=== PATIENT | male | born 1965 | race Caucasian/White ===

== ENCOUNTER 2024-03-01 22:59 | Inpatient (IN) ==
--- NOTE | 2024-03-01 23:40 | Emergency Department Note ---
Impression & Plan Uvulitis ADMIT ED Provider Note HPI: History obtained from patient. The patient is a 58-year-old gentleman who presents the emergency department with chief complaint of throat discomfort. Patient states that he has had an abnormal sensation with some discomfort to the left side of his throat since Monday. Patient states that he was seen at a local urgent care on Monday and had negative strep testing performed however he was placed on Augmentin. Patient states that his symptoms have only worsened over the past several days and now he is having some trouble swallowing solid foods and liquids secondary to the discomfort. On arrival here to the ED the patient is hemodynamically stable, he is tolerating his own secretions without issue, he is saturating well on room air without stridor on my initial assessment. ROS: - Per HPI Differential Diagnosis: Acute uvulitis, peritonsillar abscess, retropharyngeal abscess, epiglottitis, viral pharyngitis, amongst other potential pathologies. *Outpatient medications and allergy history reviewed. PE: General: Alert HEENT: Normocephalic, trachea midline, there is moderate swelling of the uvula and the left side of the posterior pharyngeal soft tissues without any overlying exudate, no petechiae or ulcers noted, airway is otherwise patent Eyes: Extraocular eye movement is intact, no scleral erythema Pulmonary: Clear to auscultation bilaterally, no wheezing Cardio: Regular rate and rhythm GI: Abdomen is soft to palpation : No suprapubic tenderness MSK: No evidence of trauma or malformation of the extremities, no edema Skin: No evidence of rash Neuro: Alert, no focal deficits Psychiatric: Cooperative 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 On exam the patient does have some soft tissue edema of the uvula as well as the superior aspect of the soft tissues of the left side of the posterior pharynx. Patient's airway is otherwise patent, he does not display any respiratory distress or stridor. He is tolerating his own secretions without issue. Lab work shows no leukocytosis, hemoglobin is stable at 13.3, platelet count is normal, CMP does not show any critical findings. CT imaging of the soft tissues of the neck was performed with IV contrast that does show some significant soft tissue swelling/edema down to the level of the vocal cords. There is suggestion of severe airway narrowing, etiology at this point is unclear per interpreting radiologist but could be infectious, inflammatory, or malignant in nature. Patient was given IV ceftriaxone and IV Solu-Medrol here in the ED. I did discuss the results of the CT imaging with the interpreting radiologist, Dr. Ordonez over the phone. On my reassessment the patient appears well and remains saturating well on room air without any stridor or respiratory distress. I discussed the patient's presentation, physical exam findings, and CT imaging findings with the on-call general scrap worker, Dr. Julian at approximately 3:[address] Julian recommends admission and he will plan to perform nasopharyngeal scope the patient early in the morning. Case was then discussed with the on-call admitting hospitalist, Dr. Moncada, patient was placed for admission in stable condition. Patient and his at the bedside are in agreement to this plan. Consultants/Discussions held with other healthcare providers: -Otolaryngology, Dr. Julian -Radiology, Dr. Ordonez -Hospitalist, Dr. Moncada Disposition discussion held by myself with: -Patient and patient's at the bedside Diagnosis: 1. Pharyngeal edema, acute, nonspecific 2. Uvulitis, acute 3. Sore throat, acute Disposition: Admission Christiano Acosta DO Emergency Medicine Past Med/Surg History Problem List (Updated 03/02/24 @ 02:49 by Christiano Acosta DO) Uvulitis (Acute) Social History Smoking Status: Never smoker Preferred Language: Slovak Feels Safe at Home: Yes Home Meds Home Medications Medication Instructions Recorded Confirmed amoxicillin 875 mg-potassium 1 tab PO BID 03/02/24 03/02/24 clavulanate 125 mg tablet losartan 100 mg tablet 50 mg PO DAILY 03/02/24 03/02/24 rosuvastatin 10 mg tablet 10 mg PO DAILY 03/02/24 03/02/24 Previous Rx's Medication Instructions Recorded prednisone 20 mg tablet 20 mg PO BID #15 tabs 03/02/24 Results & Data (ED) Vital Signs Vital Signs - 24 hr 03/01/24 23:03 03/01/24 23:56 03/01/24 23:56 Temperature 37.5 C Temperature Source Oral Pulse Rate 73 Pulse Rate [Apical] 64 Respiratory Rate 18 16 Respiratory Effort / Characteristics Non-Labored Respiratory Depth Normal Blood Pressure 156/93 H Blood Pressure [Left Arm] 145/79 H Blood Pressure Mean 114 Blood Pressure Mean [Left Arm] 101 Blood Pressure Position [Left Arm] Sitting Pulse Oximetry 95 93 93 Oxygen Delivery Method Room Air Room Air Room Air Sepsis Recent Fever Within 48 Hours Yes Sepsis New/Unexplained Change in Mental Status No Sepsis Action Taken by Nursing No Action Required 03/02/24 00:11 03/02/24 01:00 03/02/24 02:00 Temperature Temperature Source Pulse Rate 63 Pulse Rate [Apical] 63 65 Respiratory Rate 16 16 Respiratory Effort / Characteristics Respiratory Depth Blood Pressure Blood Pressure [Left Arm] 145/83 H 146/83 H Blood Pressure Mean Blood Pressure Mean [Left Arm] 103 104 Blood Pressure Position [Left Arm] Pulse Oximetry 95 94 Oxygen Delivery Method Room Air Room Air Sepsis Recent Fever Within 48 Hours Sepsis New/Unexplained Change in Mental Status Sepsis Action Taken by Nursing 03/02/24 03:00 Temperature Temperature Source Pulse Rate Pulse Rate [Apical] 64 Respiratory Rate 16 Respiratory Effort / Characteristics Respiratory Depth Blood Pressure Blood Pressure [Left Arm] 149/83 H Blood Pressure Mean Blood Pressure Mean [Left Arm] 105 Blood Pressure Position [Left Arm] Pulse Oximetry 93 Oxygen Delivery Method Room Air Sepsis Recent Fever Within 48 Hours Sepsis New/Unexplained Change in Mental Status Sepsis Action Taken by Nursing Laboratory Data 03/01/24 23:29 03/01/24 23:29 Lab Results 03/01/24 Range/Units 23:29 WBC 10.33 (4.8-10.8) K/ul RBC 4.50 L (4.70-6.10) M/uL Hgb 13.3 L (14.0-18.0) g/dl Hct 39.4 L (42.0-52.0) % MCV 87.6 (80.0-100.0) fL MCH 29.6 (25.0-34.0) pg MCHC 33.8 (32.0-36.0) g/dL RDW Std Deviation 43.1 (36.4-46.3) fL RDW Coeff of Mike 13.5 (11.5-14.5) % Plt Count 256 (130-400) K/uL MPV 9.6 (9.4-12.4) fL Immature Gran % (Auto) 0.4 % Neut % (Auto) 72.9 % Lymph % (Auto) 15.4 % [place] % (Auto) 10.1 % Eos % (Auto) 0.8 % Baso % (Auto) 0.4 % Neut # (Auto) 7.54 H (1.40-6.50) K/uL Lymph # (Auto) 1.59 (1.20-3.40) K/uL [place] # (Auto) 1.04 H (0.11-0.59) K/uL Eos # (Auto) 0.08 (0.00-0.50) K/uL Baso # (Auto) 0.04 (0.00-0.20) K/uL Immature Gran # (Auto) 0.04 (0.01-0.20) K/uL PT 10.5 (9.0-12.0) Seconds INR 1.0 (0.9-1.1) Sodium 138 (136-145) mmol/L Potassium 3.8 (3.5-5.1) mmol/L Chloride 104 (98-107) mmol/L Carbon Dioxide 24 (21-32) mmol/L Anion Gap 10 (3-11) BUN 17 (6-23) mg/dl Creatinine 1.20 (0.6-1.4) mg/dl Est Cr Clr Drug Dosing 85.3 ml/min Est GFR ( Amer) 76.3 ml/min Est GFR (Non-Af Amer) 65.8 ml/min BUN/Creatinine Ratio 14.2 (10-20) Glucose 123 H (70-99(Fasting)) mg/dl Calcium 10.2 (8.6-10.3) mg/dl Total Bilirubin 0.8 (0.2-1.0) mg/dl AST 19 (13-39) U/L ALT 21 (7-52) U/L Alkaline Phosphatase 50 (34-104) U/L Total Protein 8.1 (6.0-8.3) gm/dl Albumin 4.7 (3.4-5.0) gm/dl Globulin 3.4 (2.5-4.0) gm/dl Albumin/Globulin Ratio 1.4 (0.9-2) Administered Medications Discontinued Medications Sodium Chloride (Nss) 500 mls @ 999 mls/hr IV .Q31M STA Stop: 03/01/24 23:48 Last Infusion: 03/02/24 00:19 Dose: Infused Documented By: Admin: 03/01/24 23:48 Dose: 999 mls/hr Documented By: ANA Ceftriaxone Sodium (Rocephin) 1,000 mg in 50 mls @ 100 mls/hr IV NOW STA Stop: 03/01/24 23:48 Last Infusion: 03/02/24 00:19 Dose: Infused Documented By: Admin: 03/01/24 23:48 Dose: 100 mls/hr Documented By: ANA Ioversol (Optiray 320 100ml) 94 ml IV ONCE ONE Stop: 03/02/24 00:49 Last Admin: 03/02/24 00:48 Dose: 94 ml Documented By: ARIAS Methylprednisolone (Methylprednisolone 125 Mg/2 Ml Vial) 125 mg IV NOW STA Stop: 03/01/24 23:19 Last Admin: 03/01/24 23:49 Dose: 125 mg Documented By: ANA Imaging Data Radiologist's Impression: Soft Tissue Neck CT 03/01/24 23:20 CR Exam(s): CT NECK With Contrast IV Amt: 94 cc's optiray 320 EXAM: CT Neck With Intravenous Contrast CLINICAL HISTORY: Reason for exam: uvula swelling, L sided post. pharyngeal edema. TECHNIQUE: Axial computed tomography images of the neck with intravenous contrast. CTDI is 19.3 mGy and DLP is 604.6 mGy-cm. Automated exposure control was utilized for the study. A dose lowering technique was utilized adhering to the principles of ALARA. Moderate dental metal artifact. CONTRAST: Patient received 94 cc optiray 320 IV. COMPARISON: No relevant prior studies available. FINDINGS: Oropharynx: Uvular swelling, and moderate asymmetric mucosal swelling in the oropharynx, greater on the left. Nonspecific, could reflect left tonsillar hypertrophy, and a 12 mm left peritonsillar abscess. Limited evaluation due to dental metal artifact. Neoplasm not excluded. Severe narrowing of the oropharyngeal airway to 1 mm in the supine position. Hypopharynx/larynx: Mild mucosal thickening in the left uvula to the level of the vocal cords. Normal epiglottis. Trachea: Unremarkable. Retropharyngeal space: Unremarkable. Submandibular/parotid glands: Unremarkable. Glands are normal in size. Thyroid: Unremarkable. No enlarged or calcified nodules. Bones/joints: No acute fracture. Soft tissues: Unremarkable. Vasculature: No acute findings. Lymph nodes: Nonspecific left level 2 cervical lymph nodes, may be reactive, cannot rule out metastatic disease. Lung apices: Unremarkable as visualized. IMPRESSION: 1. Moderate left oropharyngeal mucosal thickening, results in severe airway narrowing. This may be inflammatory/infectious, neoplasm not excluded. 2. Mucosal edema extends in the left hypopharynx/larynx to the level of the vocal cords. 3. Nonspecific left level 2 cervical adenopathy, may be reactive, metastatic disease not excluded. Communications: Call Doctor Above results Electronically signed by: Delfina Ordonez M.D. 03/02/24 03:14 AM Discharge Plan Visit Data Chief Complaint: Sore Throat Stated Complaint: SORE AND SWOLLEN THROAT ED Provider: Christiano Acosta Discharge Problem: Uvulitis Patient Disposition: Home - Self-Care Condition: Good Discharge Instructions Krames/Other Patient Handouts: ED Uvulitis, ED [facility] Sore Throat Activity Restrictions/Additional Instructions: Please follow-up with otolaryngology in the office as discussed, please call Monday to schedule this appointment. Please follow-up with your primary care doctor in 2 to 3 days for reassessment and further management. Please take your prednisone as prescribed. Please continue to take your Augmentin as prescribed. Please return to the emergency room if you have any new or acutely worsening symptoms. Forms Stand Alone Forms: My [facility], Important Visit Information Prescriptions Prescriptions: New prednisone 20 mg tablet 20 mg PO BID Qty: 15 0RF Rx Instructions: Please take one tablet by mouth twice daily on days 1 through 5. Please take one tablet by mouth once daily on days 6 through 10. No Action losartan 100 mg tablet 50 mg PO DAILY amoxicillin-pot clavulanate 875-125 mg tablet 1 tab PO BID rosuvastatin 10 mg tablet 10 mg PO DAILY Referrals Referrals: Christiano Alvarez MD [Physician] - PCP,NO [Physician] -
[2024-03-01] MEDS: SODIUM CHLORIDE 0.9% 500 ML IV STA (23:48)
[2024-03-01] MEDS: cefTRIAXone SODIUM 1,000 MG/50 ML BAG IV STA (23:48)
[2024-03-01] MEDS: methylPREDNISolone 125 MG/2 ML VIAL IV STA (23:49)
[2024-03-01 23:58] LABS: Basophils # (auto) 0.04 K/uL (0.00-0.20); Basophils % (auto) 0.4 %; Eosinophils # (auto) 0.08 K/uL (0.00-0.50); Eosinophils % (auto) 0.8 %; Hematocrit (blood only) 39.4 % (42.0-52.0); Hemoglobin 13.3 g/dl (14.0-18.0); Immature Granulocytes # (auto) 0.04 K/uL (0.01-0.20); Immature Granulocytes % (auto) 0.4 %; Lymphocytes # (auto) 1.59 K/uL (1.20-3.40); Lymphocytes % (auto) 15.4 %; Mean Corpuscular Hemoglobin 29.6 pg (25.0-34.0); Mean Corpuscular Hgb Conc 33.8 g/dL (32.0-36.0); Mean Corpuscular Volume 87.6 fL (80.0-100.0); Mean Platelet Volume 9.6 fL (9.4-12.4); Monocytes # (auto) 1.04 K/uL (0.11-0.59); Monocytes % (auto) 10.1 %; Neutrophils # (auto) 7.54 K/uL (1.40-6.50); Neutrophils % (auto) 72.9 %; Platelet Count 256 K/uL (130-400); RDW Coefficient of Variation 13.5 % (11.5-14.5); RDW Standard Deviation 43.1 fL (36.4-46.3); White Blood Count 10.33 K/ul (4.8-10.8)
[2024-03-02 00:11] LABS: Albumin Globulin Ratio 1.4 (0.9-2); Albumin Level 4.7 gm/dl (3.4-5.0); BUN Creatinine Ratio 14.2 (10-20); Bilirubin,Total 0.8 mg/dl (0.2-1.0); Calcium 10.2 mg/dl (8.6-10.3); Creatinine Clr Calc Pharmacy 85.3 ml/min; Est GFR (African American) 76.3 ml/min; Est GFR (Non-African American) 65.8 ml/min; Globulin 3.4 gm/dl (2.5-4.0); Potassium 3.8 mmol/L (3.5-5.1); Total Protein 8.1 gm/dl (6.0-8.3)
[2024-03-02 00:30] LABS: Prothrombin Time 10.5 Seconds (9.0-12.0)
[2024-03-02] MEDS: OPTIRAY 320 100ml IV ONE (00:48)
--- NOTE | 2024-03-02 03:15 | CT Scan Report ---
Exam(s): CT NECK With Contrast IV Amt: 94 cc's optiray 320 EXAM: CT Neck With Intravenous Contrast CLINICAL HISTORY: Reason for exam: uvula swelling, L sided post. pharyngeal edema. TECHNIQUE: Axial computed tomography images of the neck with intravenous contrast. CTDI is 19.3 mGy and DLP is 604.6 mGy-cm. Automated exposure control was utilized for the study. A dose lowering technique was utilized adhering to the principles of ALARA. Moderate dental metal artifact. CONTRAST: Patient received 94 cc optiray 320 IV. COMPARISON: No relevant prior studies available. FINDINGS: Oropharynx: Uvular swelling, and moderate asymmetric mucosal swelling in the oropharynx, greater on the left. Nonspecific, could reflect left tonsillar hypertrophy, and a 12 mm left peritonsillar abscess. Limited evaluation due to dental metal artifact. Neoplasm not excluded. Severe narrowing of the oropharyngeal airway to 1 mm in the supine position. Hypopharynx/larynx: Mild mucosal thickening in the left uvula to the level of the vocal cords. Normal epiglottis. Trachea: Unremarkable. Retropharyngeal space: Unremarkable. Submandibular/parotid glands: Unremarkable. Glands are normal in size. Thyroid: Unremarkable. No enlarged or calcified nodules. Bones/joints: No acute fracture. Soft tissues: Unremarkable. Vasculature: No acute findings. Lymph nodes: Nonspecific left level 2 cervical lymph nodes, may be reactive, cannot rule out metastatic disease. Lung apices: Unremarkable as visualized. IMPRESSION: 1. Moderate left oropharyngeal mucosal thickening, results in severe airway narrowing. This may be inflammatory/infectious, neoplasm not excluded. 2. Mucosal edema extends in the left hypopharynx/larynx to the level of the vocal cords. 3. Nonspecific left level 2 cervical adenopathy, may be reactive, metastatic disease not excluded. Communications: Call Doctor Above results Electronically signed by: Delfina Ordonez M.D. 03/02/24 03:14 AM
--- NOTE | 2024-03-02 04:25 | History & Physical Report ---
Date of Service March 02, 2024 Assessment & Plan (1) Sore throat: Plan: 58-year-old male with past medical history significant for hypertension, hyperlipidemia, prediabetes comes because of left-sided sore throat started since Monday. Also having fevers. Not able to swallow even liquids because of pain in the throat. He went to urgent care and was prescribed Augmentin but symptoms did not improve. On Monday he had episode of loss of peripheral vision in the left eye for about 20 minutes and then got resolved. At the time he had headache and dizziness. Currently vision is okay. Currently no headache. 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 He has hearing aids for the right ear. No runny nose. No chest pain or shortness of breath. No cough. No nausea. No abdominal pain. Normal bowel and bladder movements. Hemodynamics are okay. Sore throat on left side possible uvulitis/angioedema on CT scan. Ct scan: 1. Moderate left oropharyngeal mucosal thickening, results in severe airway narrowing. This may be inflammatory/infectious, neoplasm not excluded. 2. Mucosal edema extends in the left hypopharynx/larynx to the level of the vocal cords. 3. Nonspecific left level 2 cervical adenopathy, may be reactive, metastatic disease not excluded. ER had discussed with ENT and plan for evaluation in a.m. received dose of IV Solu-Medrol in the ER. Received Rocephin which will be continued. will keep him n.p.o. for now. IV fluids. IV pain meds as needed close monitor hypertension hold losartan IV hydralazine as needed hyperlipidemia statin prediabetes will follow HbA1c levels DVT prophylaxis SCDs for now disposition med/telemetry full code History of Present Illness Chief Complaint: Left-sided sore throat Primary Care Provider: Jitendra Santos MD 58-year-old male with past medical history significant for hypertension, hyperlipidemia, prediabetes comes because of left-sided sore throat started since Monday. Also having fevers. Not able to swallow even liquids because of pain in the throat. He went to urgent care and was prescribed Augmentin but symptoms did not improve. On Monday he had episode of loss of peripheral vision in the left eye for about 20 minutes and then got resolved. At the time he had headache and dizziness. Currently vision is okay. Currently no headache. 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 He has hearing aids for the right ear. No runny nose. No chest pain or shortness of breath. No cough. No nausea. No abdominal pain. Normal bowel and bladder movements. Hemodynamics are okay. Past medical History as mentioned above. Past surgical history. left knee meniscal tear repair. Social history. No smoking. No alcohol use.. No drug use. Family history. Father had aortic aneurysm repair. Allergies Allergy/AdvReac Type Severity Reaction Status Date / Time No Known Drug Allergies Allergy . Verified 03/02/24 05:49 Home Medications Medication Instructions Recorded Confirmed Type amoxicillin 875 mg-potassium 1 tab PO BID 03/02/24 03/02/24 History clavulanate 125 mg tablet aspirin 81 mg tablet,delayed 81 mg PO DAILY 03/02/24 03/02/24 History release ezetimibe 10 mg tablet 10 mg PO DAILY 03/02/24 03/02/24 History losartan 100 mg tablet 50 mg PO DAILY 03/02/24 03/02/24 History prednisone 20 mg tablet 20 mg PO BID #15 tabs 03/02/24 Rx rosuvastatin 10 mg tablet 10 mg PO DAILY 03/02/24 03/02/24 History Past Med/Surg History Problem List (Updated 03/02/24 @ 04:21 by Con Moncada MD) Sore throat Uvulitis (Acute) Social History Smoking Status: Former smoker Do You Dip or Chew Tobacco: No; Hx Alcohol Use: Yes Hx Substance Use: No Preferred Language: Divehi Communication Ability: Effective Park Worker Required: No Beliefs That Will Affect Care: None Current Living Situation: Spouse Current Living Situation Comment: with Other Information That Helps Us Care for You: No Feels Safe at Home: Yes Safety Concerns: Feels Safe At This Time Review of Systems Review of Systems: All systems reviewed & are unremarkable except as noted in HPI & below Physical Exam Physical Exam: General-Not in distress. Head- atraumatic Eyes- PERRL. ENT- Left uvula and pharynx erythematous and swollen. Neck- supple, no JVD. Lungs- clear to auscultation no wheezing or crackles. Heart- regular rate and rhythm; no murmur, no gallop. Abdomen- normal bowel sounds, soft, nontender, no distension. Extremities- no pretibial edema, no erythema seen. Neuro- alert, oriented x 3; PERRL, no facial palsy; no dysarthria; moves extremities. Results & Data Results & Data Vital Signs (Past 12 Hours) Vital Signs Temp Pulse Pulse Resp BP BP Pulse Ox 03/02/24 03:00 64 16 149/83 H 93 03/02/24 02:00 65 16 146/83 H 94 03/02/24 01:00 63 16 145/83 H 95 03/02/24 00:11 63 03/01/24 23:56 93 03/01/24 23:56 64 16 145/79 H 93 03/01/24 23:03 37.5 C 73 18 156/93 H 95 O2 Del Method 03/02/24 03:00 Room Air 03/02/24 02:00 Room Air 03/02/24 01:00 Room Air 03/02/24 00:11 03/01/24 23:56 Room Air 03/01/24 23:56 Room Air 03/01/24 23:03 Room Air Diagnostic Findings Laboratory Results WBC 10.33 K/ul (4.8-10.8) 03/01/24 23: RBC 4.50 M/uL (4.70-6.10) L 03/01/24 23: Hgb 13.3 g/dl (14.0-18.0) L 03/01/24 23: Hct 39.4 % (42.0-52.0) L 03/01/24 23: MCV 87.6 fL (80.0-100.0) 03/01/24 23: MCH 29.6 pg (25.0-34.0) 03/01/24 23: MCHC 33.8 g/dL (32.0-36.0) 03/01/24 23:29 RDW Std Deviation 43.1 fL (36.4-46.3) 03/01/24 23: RDW Coeff of Mike 13.5 % (11.5-14.5) 03/01/24 23: Plt Count 256 K/uL (130-400) 03/01/24 23: MPV 9.6 fL (9.4-12.4) 03/01/24 23: Immature Gran % (Auto) 0.4 % 03/01/24 23:29 Neut % (Auto) 72.9 % 03/01/24 23:29 Lymph % (Auto) 15.4 % 03/01/24 23:29 [place] % (Auto) 10.1 % 03/01/24 23:29 Eos % (Auto) 0.8 % 03/01/24 23:29 Baso % (Auto) 0.4 % 03/01/24 23:29 Neut # (Auto) 7.54 K/uL (1.40-6.50) H 03/01/24 23:29 Lymph # (Auto) 1.59 K/uL (1.20-3.40) 03/01/24 23:29 [place] # (Auto) 1.04 K/uL (0.11-0.59) H 03/01/24 23:29 Eos # (Auto) 0.08 K/uL (0.00-0.50) 03/01/24 23: Baso # (Auto) 0.04 K/uL (0.00-0.20) 03/01/24 23: Immature Gran # (Auto) 0.04 K/uL (0.01-0.20) 03/01/24 23: PT 10.5 Seconds (9.0-12.0) 03/01/24 23: INR 1.0 (0.9-1.1) 03/01/24 23:29 Sodium 138 mmol/L (136-145) 03/01/24 23:29 Potassium 3.8 mmol/L (3.5-5.1) 03/01/24 23: Chloride 104 mmol/L (98-107) 03/01/24 23:29 Carbon Dioxide 24 mmol/L (21-32) 03/01/24 23:29 Anion Gap 10 (3-11) 03/01/24 23:29 BUN 17 mg/dl (6-23) 03/01/24 23:29 Creatinine 1.20 mg/dl (0.6-1.4) 03/01/24 23:29 Est Cr Clr Drug Dosing 85.3 ml/min 03/01/24 23:29 Est GFR ( Amer) 76.3 ml/min 03/01/24 23:29 Est GFR (Non-Af Amer) 65.8 ml/min 03/01/24 23:29 BUN/Creatinine Ratio 14.2 (10-20) 03/01/24 23:29 Glucose 123 mg/dl (70-99(Fasting)) H 03/01/24 23:29 Calcium 10.2 mg/dl (8.6-10.3) 03/01/24 23:29 Total Bilirubin 0.8 mg/dl (0.2-1.0) 03/01/24 23:29 AST 19 U/L (13-39) 03/01/24 23:29 ALT 21 U/L (7-52) 03/01/24 23:29 Alkaline Phosphatase 50 U/L (34-104) 03/01/24 23: Total Protein 8.1 gm/dl (6.0-8.3) 03/01/24 23: Albumin 4.7 gm/dl (3.4-5.0) 03/01/24 23: Globulin 3.4 gm/dl (2.5-4.0) 03/01/24 23: Albumin/Globulin Ratio 1.4 (0.9-2) 03/01/24 23:29 Impressions Soft Tissue Neck CT 03/01/24 23:20 CR Exam(s): CT NECK With Contrast IV Amt: 94 cc's optiray 320 EXAM: CT Neck With Intravenous Contrast CLINICAL HISTORY: Reason for exam: uvula swelling, L sided post. pharyngeal edema. TECHNIQUE: Axial computed tomography images of the neck with intravenous contrast. CTDI is 19.3 mGy and DLP is 604.6 mGy-cm. Automated exposure control was utilized for the study. A dose lowering technique was utilized adhering to the principles of ALARA. Moderate dental metal artifact. CONTRAST: Patient received 94 cc optiray 320 IV. COMPARISON: No relevant prior studies available. FINDINGS: Oropharynx: Uvular swelling, and moderate asymmetric mucosal swelling in the oropharynx, greater on the left. Nonspecific, could reflect left tonsillar hypertrophy, and a 12 mm left peritonsillar abscess. Limited evaluation due to dental metal artifact. Neoplasm not excluded. Severe narrowing of the oropharyngeal airway to 1 mm in the supine position. Hypopharynx/larynx: Mild mucosal thickening in the left uvula to the level of the vocal cords. Normal epiglottis. Trachea: Unremarkable. Retropharyngeal space: Unremarkable. Submandibular/parotid glands: Unremarkable. Glands are normal in size. Thyroid: Unremarkable. No enlarged or calcified nodules. Bones/joints: No acute fracture. Soft tissues: Unremarkable. Vasculature: No acute findings. Lymph nodes: Nonspecific left level 2 cervical lymph nodes, may be reactive, cannot rule out metastatic disease. Lung apices: Unremarkable as visualized. IMPRESSION: 1. Moderate left oropharyngeal mucosal thickening, results in severe airway narrowing. This may be inflammatory/infectious, neoplasm not excluded. 2. Mucosal edema extends in the left hypopharynx/larynx to the level of the vocal cords. 3. Nonspecific left level 2 cervical adenopathy, may be reactive, metastatic disease not excluded. Communications: Call Doctor Above results Electronically signed by: Delfina Ordonez M.D. 03/02/24 03:14 AM Code Status & VTE Plan VTE Prophylaxis Plan VTE Prophylaxis will be ordered: Yes
[2024-03-02] MEDS ORDERED: MoRPHine SULFATE 4 MG/ML 1 ML CARP\\VIAL IV PRN (05:18)
[2024-03-02] MEDS ORDERED: hydrALAZINE HCL 20 MG/ML VIAL IV PRN (05:18)
[2024-03-02] MEDS ORDERED: Patient's ALLERGY Info needs ENTERED STA (05:24)
[2024-03-02] MEDS: SODIUM CHLORIDE 0.9% 1,000 ML IV SCH (05:36)
[2024-03-02] MEDS: ACETAMINOPHEN 1,000 MG/100 ML VIAL IV PRN (06:05)
[2024-03-02 06:59] LABS: Hematocrit (blood only) 38.5 % (42.0-52.0); Hemoglobin 12.8 g/dl (14.0-18.0); Mean Corpuscular Hemoglobin 29.2 pg (25.0-34.0); Mean Corpuscular Hgb Conc 33.2 g/dL (32.0-36.0); Mean Corpuscular Volume 87.7 fL (80.0-100.0); Mean Platelet Volume 9.7 fL (9.4-12.4); Platelet Count 243 K/uL (130-400); RDW Coefficient of Variation 13.5 % (11.5-14.5); RDW Standard Deviation 43.7 fL (36.4-46.3); Red Blood Count 4.39 M/uL (4.70-6.10); White Blood Count 10.63 K/ul (4.8-10.8)
[2024-03-02 07:18] LABS: Calcium 9.7 mg/dl (8.6-10.3); Creatinine Clr Calc Pharmacy 90.5 ml/min; Est GFR (Non-African American) 70.8 ml/min; Magnesium 2.2 mg/dl (1.7-2.4); Potassium 4.4 mmol/L (3.5-5.1)
[2024-03-02 07:19] LABS: Basophils # (auto) 0.01 K/uL (0.00-0.20); Basophils % (auto) 0.1 %; Immature Granulocytes # (auto) 0.07 K/uL (0.01-0.20); Immature Granulocytes % (auto) 0.7 %; Lymphocytes # (auto) 0.71 K/uL (1.20-3.40); Lymphocytes % (auto) 6.7 %; Monocytes % (auto) 0.9 %; Neutrophils # (auto) 9.74 K/uL (1.40-6.50); Neutrophils % (auto) 91.6 %
[2024-03-02 08:41] LABS: Estimated Average Glucose 134 mg/dl; Hemoglobin A1C 6.3 % (4.5-5.6)
[2024-03-02] MEDS: ASPIRIN 81 MG ECTAB PO SCH (09:22)
[2024-03-02] MEDS: ROSUVASTATIN CALCIUM 10 MG TAB PO SCH (09:22)
[2024-03-02] MEDS ORDERED: DEXAMETHASONE SOD INJ 4 MG/ML VIAL IV SCH (09:30)
--- NOTE | 2024-03-02 09:36 | ENT Consultation ---
Date of Consultation March 02, 2024 Assessment & Plan (1) Cellulitis of parapharyngeal space: Patient is on antibiotics already but I would probably switch him to Unasyn. I would suggest giving him IV Decadron for 2 days to help reduce his swelling. I will follow him with you. History of Present Illness Reason for Consultation: Sore throat Attending Physician: Juan Tran MD History of Present Illness Patient is a 58-year-old male who presents with history of sore throat which been going on for 5 days. Its only on the left side. It came on suddenly. It is increased since then. He has noticed that is worse with swallowing. He has no difficulty with breathing. He has no voice problems. He has not had problem s with his throat in the past. He is a non-smoker. He has been on IV antibiotics x 1 dose and has already noticed an improvement. Allergies Allergy/AdvReac Type Severity Reaction Status Date / Time No Known Drug Allergies Allergy . Verified 03/02/24 05:49 Home Medications Medication Instructions Recorded Confirmed Type amoxicillin 875 mg-potassium 1 tab PO BID 03/02/24 03/02/24 History clavulanate 125 mg tablet aspirin 81 mg tablet,delayed 81 mg PO DAILY 03/02/24 03/02/24 History release ezetimibe 10 mg tablet 10 mg PO DAILY 03/02/24 03/02/24 History losartan 100 mg tablet 50 mg PO DAILY 03/02/24 03/02/24 History prednisone 20 mg tablet 20 mg PO BID #15 tabs 03/02/24 Rx rosuvastatin 10 mg tablet 10 mg PO DAILY 03/02/24 03/02/24 History Patient History Social History Smoking Status: Former smoker Do You Dip or Chew Tobacco: No; Hx Alcohol Use: Yes Hx Substance Use: No Preferred Language: Slovenian Communication Ability: Effective Frame Polisher Required: No Beliefs That Will Affect Care: None Current Living Situation: Spouse Current Living Situation Comment: with Other Information That Helps Us Care for You: No Feels Safe at Home: Yes Safety Concerns: Feels Safe At This Time Physical Exam Physical Exam: On examination today shows he is alert and in no distress. His breathing is normal. Examination the oropharynx shows signs of peritonsillar swelling on the left side with a bit of erythema and edema. I placed the scope through his nose down into his mouth. This showed left lateral pharyngeal wall swelling and edema. There is erythema higher up. It does not obstruct the airway. Procedure: Fiberoptic nasophayngoscopy Using topical lidocaine with ephedrine either spray or with pledgets of cotton. The scope was inserted through the nose, examining the nasal anatomy and mucosa looking for polyps, tumors, foreign bodies or infection. The scope was advanced to the nasopharynx and Valdes manouver was performed at the level of the palate and base of tongue. The scope was passed to the oral cavity where the lateral murrell, tonsillar area and posterior wall were all examined looking for mucous, masses, inflammation, swelling and bleeding. The oropharynx was examined looking for epiglottic postion, lesions or tumors. the scope was then advanced to the larynx and hypopharynx. The postcricoid area, aryepiglottic folds and pyriform sinuses were examined. The vocal cords, glottic surface of the epiglottis, ventricles and subglottis were evaluated for cord mobility and position with respiration and phonation, cough, pooloing of secretions and any notable lesions. Abnormalities are included in the examination notes. The risks and benefits of the procedure were discussed with the patient including the examination, the assistance in making the diagnosis and the possibility in aiding treatment of the patients condition. Possible options and complications were outlined. Results & Data Vital Signs (Past 12 Hours) Vital Signs Temp Pulse Pulse Pulse Resp BP BP 03/02/24 06:39 62 03/02/24 05:21 36.4 C L 67 16 155/94 H 03/02/24 05:00 64 16 155/89 H 03/02/24 04:17 66 03/02/24 03:00 64 16 149/83 H 03/02/24 02:00 65 16 146/83 H 03/02/24 01:00 63 16 145/83 H 03/02/24 00:11 63 03/01/24 23:56 03/01/24 23:56 64 16 145/79 H 03/01/24 23:03 37.5 C 73 18 156/93 H Pulse Ox O2 Del Method 03/02/24 06:39 03/02/24 05:21 93 Room Air 03/02/24 05:00 93 Room Air 03/02/24 04:17 03/02/24 03:00 93 Room Air 03/02/24 02:00 94 Room Air 03/02/24 01:00 95 Room Air 03/02/24 00:11 03/01/24 23:56 93 Room Air 03/01/24 23:56 93 Room Air 03/01/24 23:03 95 Room Air Diagnostic Findings Review of the CT scan shows that there is swelling of the left lateral pharyngeal wall extending from the tonsil area down into the piriform fossa. There is no evidence of abscess. PG Care Time/CCT Total # of Minutes Spent Total Time Spent with Patient: Total time spent is greater than 50% in coordination of care (as documented) at patient's floor/unit and/or counseling patient: [place] [address] IN/OBS CONSULT LVL 5,80M Patient Type New History Expanded Problem Focused Exam Expanded Problem Focused Medical Decision Making Moderate Complexity Diagnoses Cellulitis of parapharyngeal space J39.0 CPT Codes Nasopharyngoscopy - 98067 ([id number])
[2024-03-02] MEDS ORDERED: dexAMETHasone 8 MG in SYRINGE 0 ML IV SCH (09:45)
[2024-03-02] MEDS: LOSARTAN POTASSIUM 50 MG TAB PO SCH (10:06)
[2024-03-02] MEDS: AMPICILLIN/SULBACTAM SOD 3,000 MG in SODIUM CHLOR 0.9% MINI-B 100 ML IV SCH (10:07)
[2024-03-02] MEDS: dexAMETHasone 4 MG in SYRINGE 0 ML IV SCH (10:35)
[2024-03-02] MEDS: GADOBUTROL 15ML VIAL IV ONE (14:17)
--- NOTE | 2024-03-02 14:36 | Hospitalist Progress Note ---
Date of Service March 02, 2024 Assessment & Plan (1) Sore throat: Plan: 58-year-old male with past medical history significant for hypertension, hyperlipidemia, prediabetes comes because of left-sided sore throat started since Monday. Also having fevers. Not able to swallow even liquids because of pain in the throat. He went to urgent care and was prescribed Augmentin but symptoms did not improve. On Monday he had episode of loss of peripheral vision in the left eye for about 20 minutes and then got resolved. At the time he had headache and dizziness. Currently vision is okay. Currently no headache. 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 He has hearing aids for the right ear. No runny nose. No chest pain or shortness of breath. No cough. No nausea. No abdominal pain. Normal bowel and bladder movements. Hemodynamics are okay. Cellulitis of left parapharyngeal space Dysphagia secondary to above --Neck CT:Moderate left oropharyngeal mucosal thickening, results in severe airway narrowing. This may be inflammatory/infectious, neoplasm not excluded. Mucosal edema extends in the left hypopharynx/larynx to the level of the vocal cords. Nonspecific left level 2 cervical adenopathy, may be reactive, metastatic disease not excluded. -- Blood cultures pending -- Appreciate ENT input: No angioedema. Continue IV steroids, antibiotics Started on IV Unasyn today Continue IV Decadron Liquid diet for today Pain control Transient visual loss recently Currently denies any acute issues MRI brain pending Hypertension Continue losartan IV hydralazine as needed Hyperlipidemia Continue statin Prediabetes HbA1c 6.3 DVT prophylaxis Heparin SQ Code Status Full code Admission and Anticipated Discharge Date Admission Date: March 02, 2024 Subjective Patient is seen and examined at bedside States feeling better today Left neck/oral pain, swelling improving Able to tolerate liquid diet Discussed with ENT today Patient denies any chest pain, dyspnea, nausea, vomiting, abdominal pain, change in vision currently Family at bedside Review of Systems Review of Systems: All systems reviewed & are unremarkable except as noted in Subjective Physical Exam Physical Exam: Physical Exam: Vitals signs as noted above General Appearance:Moderately built and nourished, no apparent distress Head: normocephalic, Atraumatic,+ left lateral pharyngeal wall swelling, edema, erythema Eyes: normal inspection, EOMI Neck: supple, Trachea midline, Left tender Respiratory/Chest: Normal breath sounds, CTA, No accessory muscle use Cardiovascular: S1, S2, No murmur Abdomen/GI:Soft, Non tender, Bowel sounds present Extremities/Musculoskeletal:normal inspection, no edema Neurologic/Psych:AAOX3, grossly no focal neurological deficits, +Left decreased hearing Skin: normal color, warm Results & Data Results & Data Vital Signs (Past 12 Hours) Vital Signs Temp Pulse Pulse Pulse Resp BP Pulse Ox 03/02/24 13:59 87 03/02/24 11:36 36.6 C 83 18 155/79 H 95 03/02/24 06:39 62 03/02/24 05:21 36.4 C L 67 16 155/94 H 93 03/02/24 05:00 64 16 155/89 H 93 03/02/24 04:17 66 03/02/24 03:00 64 16 149/83 H 93 O2 Del Method 03/02/24 13:59 03/02/24 11:36 Room Air 03/02/24 06:39 03/02/24 05:21 Room Air 03/02/24 05:00 Room Air 03/02/24 04:17 03/02/24 03:00 Room Air Laboratory Results Short CBC 03/01/24 03/02/24 Range/Units 23:29 06:41 WBC 10.33 10.63 (4.8-10.8) K/ul Hgb 13.3 L 12.8 L (14.0-18.0) g/dl Hct 39.4 L 38.5 L (42.0-52.0) % Plt Count 256 243 (130-400) K/uL BMP 03/01/24 03/02/24 23:29 06:41 Sodium 138 138 Potassium 3.8 4.4 Chloride 104 105 Carbon Dioxide 24 25 BUN 17 17 Creatinine 1.20 1.13 Glucose 123 H 181 H Calcium 10.2 9.7 Liver Function 03/01/24 Range/Units 23:29 Total Bilirubin 0.8 (0.2-1.0) mg/dl AST 19 (13-39) U/L ALT 21 (7-52) U/L Alkaline Phosphatase 50 (34-104) U/L Albumin 4.7 (3.4-5.0) gm/dl
--- NOTE | 2024-03-02 14:44 | Magnetic Resonance Report ---
MRI OF THE BRAIN WITHOUT AND WITH IV CONTRAST CLINICAL HISTORY: Transient visual loss. COMPARISON STUDY: CT of the neck March 02, 2024. TECHNIQUE: Utilizing a 1.5 Uyen magnet and dedicated coil, multiplanar, multiecho imaging of the br ain was performed pre and postcontrast administration. IV administration of 11 mL of [address] contra st was uneventful. FINDINGS: There are no foci of restricted diffusion to suggest acute infarct. No acute intracranial h emorrhage, midline shift or mass effect is present. Ventricular system is normal. Basal cisterns are patent. Flow-voids for the major intracranial vessels are present. There is no intracranial mass or p athologic enhancement. Flow-voids for the major intracranial vessels are present. No parenchymal sign al abnormality is identified. A sebaceous cyst within the left scalp is incidentally noted. There is a rim-enhancing left peritonsillar abnormality that measures approximately 2.4 x 1.9 x 1.3 cm. IMPRESSION: 1. No acute intracranial findings. Unremarkable MRI of the brain. 2. Rim-enhancing left peritonsillar abnormality that measures approximately 2.4 x 1.9 x 1.3 cm. This is suggestive of a peritonsillar abscess. In retrospect, this was likely present on CT of March 02 but was obscured by streak artifact from dental amalgams ACT 112: Negative or not required by law. Electronically signed by: Yaakov Joseph M.D. 03/02/2024 2:42 PM
[2024-03-02] MEDS: dexAMETHasone 8 MG in SYRINGE 0 ML IV SCH (16:44)
[2024-03-02] MEDS: HEPARIN SOD 5,000 UNIT/0.5 ML VIAL SQ SCH (21:15)
[2024-03-02] MEDS ORDERED: cefTRIAXone SODIUM 2,000 MG/50 ML BAG IV SCH (22:00)
[2024-03-03 07:32] LABS: Hematocrit (blood only) 37.6 % (42.0-52.0); Hemoglobin 12.4 g/dl (14.0-18.0); Mean Corpuscular Hemoglobin 28.9 pg (25.0-34.0); Mean Corpuscular Volume 87.6 fL (80.0-100.0); Mean Platelet Volume 10.2 fL (9.4-12.4); Platelet Count 277 K/uL (130-400); RDW Coefficient of Variation 13.4 % (11.5-14.5); RDW Standard Deviation 43.2 fL (36.4-46.3); Red Blood Count 4.29 M/uL (4.70-6.10); White Blood Count 13.64 K/ul (4.8-10.8)
[2024-03-03 07:52] LABS: BUN Creatinine Ratio 16.5 (10-20); Calcium 9.3 mg/dl (8.6-10.3); Creatinine Clr Calc Pharmacy 112.4 ml/min; Est GFR (African American) 106.5 ml/min; Est GFR (Non-African American) 91.9 ml/min
--- NOTE | 2024-03-03 09:53 | History & Physical Bridge Note ---
Date of Service March 03, 2024 History & Physical Bridge Note Patient has had an MRI scan which shows a left peritonsillar abscess. Today the patient feels better but still has a sore throat and feels as if there is something there On examination there is still left peritonsillar swelling but less and no erythema Impression: Patient has a peritonsillar abscess. Options discussed with patient including surgery Plan:Incision and drainage left peritonsillar abscess
[2024-03-03] MEDS ORDERED: ePHEDrine sulfate 50 MG/ML AMP IV PRN ×2 (11:08→17:04)
[2024-03-03] MEDS ORDERED: ATROPINE SULFATE 0.1 MG/ML 10ML SYR IV PRN ×2 (11:08→17:04)
--- NOTE | 2024-03-03 11:29 | Hospitalist Progress Note ---
Date of Service March 03, 2024 Assessment & Plan (1) Sore throat: Plan: 58-year-old male with past medical history significant for hypertension, hyperlipidemia, prediabetes comes because of left-sided sore throat started since Monday. Also having fevers. Not able to swallow even liquids because of pain in the throat. He went to urgent care and was prescribed Augmentin but symptoms did not improve. On Monday he had episode of loss of peripheral vision in the left eye for about 20 minutes and then got resolved. At the time he had headache and dizziness. Currently vision is okay. Currently no headache. 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 He has hearing aids for the right ear. No runny nose. No chest pain or shortness of breath. No cough. No nausea. No abdominal pain. Normal bowel and bladder movements. Hemodynamics are okay. Cellulitis of left parapharyngeal space Left peritonsillar abscess--POA Dysphagia secondary to above --Neck CT:Moderate left oropharyngeal mucosal thickening, results in severe airway narrowing. This may be inflammatory/infectious, neoplasm not excluded. Mucosal edema extends in the left hypopharynx/larynx to the level of the vocal cords. Nonspecific left level 2 cervical adenopathy, may be reactive, metastatic disease not excluded. --MRI:Rim-enhancing left peritonsillar abnormality that measures approximately 2.4 x 1.9 x 1.3 cm. This is suggestive of a peritonsillar abscess. In retrospect, this was likely present on CT of March 02, 2024 but was obscured by streak artifact from dental amalgams -- Blood cultures: No growth to date -- Appreciate ENT input Continue IV Unasyn Continue IV Decadron Plan for I&D today Pain is controlled Transient visual loss recently Currently denies any acute issues --MRI brain:No acute intracranial findings. Unremarkable MRI of the brain. -- Advised to follow-up with neurology/ophthalmology as outpatient Hypertension Continue losartan IV hydralazine as needed Hyperlipidemia Continue statin Prediabetes HbA1c 6.3 DVT prophylaxis Heparin SQ Code Status Full code Admission and Anticipated Discharge Date Admission Date: March 02, 2024 Subjective Patient is seen and examined at bedside Decreased neck pain, swelling Still has dysphagia Plan for I&D today No new complaints Patient denies any chest pain, dyspnea, nausea, vomiting, abdominal pain, change in vision currently Review of Systems Review of Systems: All systems reviewed & are unremarkable except as noted in Subjective Physical Exam Physical Exam: Physical Exam: Vitals signs as noted above General Appearance:Moderately built and nourished, no apparent distress Head: normocephalic, Atraumatic,+ left lateral pharyngeal wall swelling, edema, erythema Eyes: normal inspection, EOMI Neck: supple, Trachea midline, Left tender Respiratory/Chest: Normal breath sounds, CTA, No accessory muscle use Cardiovascular: S1, S2, No murmur Abdomen/GI:Soft, Non tender, Bowel sounds present Extremities/Musculoskeletal:normal inspection, no edema Neurologic/Psych:AAOX3, grossly no focal neurological deficits, +Left decreased hearing Skin: normal color, warm Results & Data Results & Data Vital Signs (Past 12 Hours) Vital Signs Temp Pulse Pulse Resp BP Pulse Ox O2 Del Method 03/03/24 11:15 36.5 C 61 18 148/76 H 94 Room Air 03/03/24 07:48 36.6 C 59 L 18 134/74 93 Room Air 03/03/24 06:58 57 L 03/03/24 04:11 36.5 C 64 18 139/80 95 Room Air 03/02/24 23:33 67 Laboratory Results Short CBC 03/03/24 Range/Units 06:41 WBC 13.64 H (4.8-10.8) K/ul Hgb 12.4 L (14.0-18.0) g/dl Hct 37.6 L (42.0-52.0) % Plt Count 277 (130-400) K/uL BMP 03/03/24 06:41 Sodium 141 Potassium 4.0 Chloride 109 H Carbon Dioxide 25 BUN 15 Creatinine 0.91 Glucose 173 H Calcium 9.3
--- NOTE | 2024-03-03 11:42 | Anesthesiology Consultation ---
Date of Service March 03, 2024 Assessment & Plan Chart Review Chart Review: Acceptable Risk for Surgery and Patient NOT seen in Pre Admission Testing Consults Requested none ASA [id number] Proposed Anesthesia Anesthesia Type: General History Surgery Operation Date: 03/03/24 16:30 Proposed Procedures p M. Facial Incision and Drainage(Left) - Marcel Julian MD Height/Weight Height: 6 ft Weight: 110.9 kg Allergies Allergy/AdvReac Type Severity Reaction Status Date / Time No Known Drug Allergies Allergy . Verified 03/02/24 05:49 Medications Home Medications Medication Instructions Recorded Confirmed Last Taken amoxicillin 875 mg-potassium 1 tab PO BID 03/02/24 03/02/24 Unknown clavulanate 125 mg tablet aspirin 81 mg tablet,delayed 81 mg PO DAILY 03/02/24 03/02/24 Unknown release ezetimibe 10 mg tablet 10 mg PO DAILY 03/02/24 03/02/24 Unknown losartan 100 mg tablet 50 mg PO DAILY 03/02/24 03/02/24 Unknown prednisone 20 mg tablet 20 mg PO BID #15 tabs 03/02/24 Unknown rosuvastatin 10 mg tablet 10 mg PO DAILY 03/02/24 03/02/24 Unknown Active Medications Generic Name Dose Route Start Last Admin Trade Name Freq PRN Reason Stop Dose Admin Aspirin 81 mg 03/02/24 09:00 03/03/24 08:21 Aspirin 81 Mg Ectab PO 04/01/24 08:59 81 mg DAILY KENIA Administration Heparin Sodium (Porcine) 5,000 units 03/02/24 21:00 03/03/24 08:21 Heparin Sod 5,000 Unit/0.5 Ml Vial SQ 04/01/24 20:59 Not Given Q12 KENIA Sodium Chloride 1,000 mls @ 50 mls/hr 03/02/24 05:18 03/02/24 21:03 Nss IV 03/03/24 15:59 50 mls/hr .Q20H KENIA Administration Acetaminophen 1,000 mg in 100 mls @ 400 mls/hr 03/02/24 05:18 03/03/24 08:45 Ofirmev IV 03/05/24 05:17 Infused Q8H PRN Infusion Pain or Fever Ampicillin Sodium/Sulbactam 100 mls @ 100 mls/hr 03/02/24 10:00 03/03/24 11:23 Sodium 3,000 mg/ Sodium IV 03/12/24 09:59 Infused Chloride Q6H KENIA Infusion Dexamethasone 8 mg/ Syringe 2 mls @ 1 mls/min 03/02/24 16:00 03/03/24 08:22 IV 03/04/24 15:59 1 mls/min Q8H KENIA Administration Losartan Potassium 50 mg 03/02/24 09:45 03/03/24 08:21 Losartan Potassium 50 Mg Tab PO 04/01/24 09:44 50 mg DAILY KENIA Administration Rosuvastatin Calcium 10 mg 03/02/24 09:00 03/03/24 08:22 Rosuvastatin Calcium 10 Mg Tab PO 04/01/24 08:59 10 mg DAILY KENIA Administration NPO Date Last Intake of Fluids: 03/03/24 Time Last Intake of Fluids: 08:45 Date Last Intake of Solids: 03/03/24 Time Last Intake of Solids: 08:45 Past Medical History obese JOHNNA HTN HLD NIDDM Exercise / Class Metabolic Activity II 4-5 Yardwork/Stairs/Walk up hill Past Anesthesia History No Hx of Anesthesia Complications and No Family Hx of Anesthesia Complications History of PONV No Hx of PONV and No Hx of Motion Sickness Social History Smoking Status: Former smoker Do You Dip or Chew Tobacco: No Hx Alcohol Use: Yes alcohol intake frequency: holidays/special occasions only Hx Substance Use: No Physical Exam Vital Signs Last Vital Signs Temp 36.5 C 03/03/24 11:15 Pulse 61 03/03/24 11:15 Resp 18 03/03/24 11:15 BP 148/76 H 03/03/24 11:15 Pulse Ox 94 03/03/24 11:15 O2 Del Method Room Air 03/03/24 11:15 Testing Laboratory Results 03/03/24 06:41 03/03/24 06:41 PT 10.5 Seconds (9.0-12.0) 03/01/24 23:29 INR 1.0 (0.9-1.1) 03/01/24 23:29 Hemoglobin A1c 6.3 % (4.5-5.6) H 03/02/24 06:41 03/01/24 23:37 Aerobic Blood Culture - Preliminary Blood No growth in Aerobic bottle after 24 hours. Anaerobic Blood Culture - Preliminary No growth in Anaerobic bottle after 24 hours. 03/01/24 23:29 Aerobic Blood Culture - Preliminary Blood No growth in Aerobic bottle after 24 hours. Anaerobic Blood Culture - Preliminary No growth in Anaerobic bottle after 24 hours. 03/03/24 11:24 POC Glucose 101 H
--- NOTE | 2024-03-03 11:43 | Communication Note ---
Date of Service: March 03, 2024 AUBREE@ 59
--- NOTE | 2024-03-03 14:30 | Electrocardiogram Report ---
Test Reason : Blood Pressure : / mmHG Vent. Rate : 060 BPM Atrial Rate : 060 BPM P-R Int : 146 ms QRS Dur : 098 ms QT Int : 464 ms P-R-T Axes : 061 -10 -09 degrees QTc Int : 464 ms Normal sinus rhythm Normal ECG No previous ECGs available Confirmed by Jake Costa ([id number]) on 03/03/2024 2:30:16 PM Referred By: REFERRED SELF Confirmed By:Jake Costa
[2024-03-03] MEDS ORDERED: SUCCINYLCHOLINE CHLORIDE 20 MG/ML 10 ML VIAL IV ONE (16:46)
[2024-03-03] MEDS ORDERED: PROPOFOL IV EMULSION 10 MG/ML 20 ML VIAL IV ONE ×2 (16:47→17:50)
[2024-03-03] MEDS ORDERED: MIDAZOLAM HCL 1 MG/ML 2ML VIAL ONE (16:48)
[2024-03-03] MEDS ORDERED: fentaNYL citrate PF 100 MCG/2 ML VIAL ONE ×2 (16:49→17:27)
[2024-03-03] MEDS ORDERED: NALOXONE HCL 0.4 MG/1 ML VIAL/CARP IV PRN (17:04)
[2024-03-03] MEDS ORDERED: LABETALOL HCL IV 5 MG/ML 20ML IV PRN (17:04)
[2024-03-03] MEDS ORDERED: FLUMAZENIL 0.1 MG/1 ML 10 ML VIAL IV PRN (17:04)
[2024-03-03] MEDS ORDERED: ONDANSETRON INJ 2 MG/ML 2 ML VIAL IV PRN (17:04)
[2024-03-03] MEDS ORDERED: PROMETHAZINE HCL 6.25 MG in SODIUM CHLORIDE 0.9% 50 ML IV PRN (17:04)
[2024-03-03] MEDS ORDERED: HYDROmorphone INJ 1 MG/ML SYRINGE IV PRN (17:04)
[2024-03-03] MEDS: LIDOCAINE 1%/EPINEPHRINE 1:100,000 50 ML VIAL ONE (17:32)
--- NOTE | 2024-03-03 17:37 | Post Operative Brief Note ---
PG Immediate Post Op with CF Date of Surgery March 03, 2024 Pre & Post Diagnosis Operation Date: 03/03/24 16:30 <No data on this case meets the specified criteria> I identified the patient and participated in the time-out.: Yes Procedure Operation Date: 03/03/24 16:30 Actual Procedures p Peritonsillar Abcsess(Left) - Marcel Julian MD Surgeon Marcel Julian MD Senior Financial Accountant none Estimated Blood Loss 1 Findings Consistent with Post-Op Diagnosis left peritonsillar swelling and abscess fluid Specimens Specimen Description: 1. Fluid Abcess Left Peritonsilar
--- NOTE | 2024-03-03 17:41 | Operative Report ---
PG Post Operative Report Pre & Post Diagnosis preop diagnosis: left peritonsillar abscess postop diagnosis: same Operation Date: 03/03/24 16:30 <No data on this case meets the specified criteria> I identified the patient and participated in the time-out.: Yes Procedure Operation Date: 03/03/24 16:30 Actual Procedures p Peritonsillar Abcsess(Left) - Marcel Julian MD Surgeon Marcel Julian MD Brick Unloader Tender none Estimated Blood Loss 1 Findings Consistent with Post-Op Diagnosis Specimens swab of fluid for culture Anesthesia Type General Complications none Description of Procedure general anesthesia. James israel gag. infiltrated area with lidocaine/epi. Incision anterior pillar left side. blunt dissection. 1 ml fluid yellowish suctioned I attest to the content of the Intraoperative Record and any orders documented therein. Any exceptions are noted below.
[2024-03-03] MEDS: LIDOCAINE 1% LOCAL 20 ML VIAL ONE (17:44)
[2024-03-03] MEDS ORDERED: ACETAMINOPHEN W/CODEINE #3 1 TAB PO PRN (17:45)
[2024-03-03] MEDS: fentaNYL citrate PF 100 MCG/2 ML VIAL IV PRN (18:02)
[2024-03-03] MEDS: fentaNYL citrate PF 100 MCG/2 ML VIAL ONE (18:06)
--- NOTE | 2024-03-03 18:38 | Anesthesiology Progress Note ---
Date of Service March 03, 2024 Anesthesia Post Procedure Vital Signs Vital Signs: Temp Pulse Pulse Pulse Resp BP Pulse Ox 03/03/24 18:25 36.6 C 62 17 137/81 95 03/03/24 18:15 56 L 14 142/80 H 96 03/03/24 18:05 63 13 164/94 H 98 03/03/24 17:56 36.2 C L 63 15 173/105 H 100 03/03/24 16:09 36.8 C 60 18 151/78 H 95 03/03/24 13:59 64 03/03/24 11:15 36.5 C 61 18 148/76 H 94 03/03/24 07:48 36.6 C 59 L 18 134/74 93 03/03/24 06:58 57 L 03/03/24 04:11 36.5 C 64 18 139/80 95 03/02/24 23:33 67 03/02/24 22:35 36.7 C 70 18 163/84 H 92 03/02/24 20:08 36.3 C L 73 20 152/79 H 93 O2 Del Method O2 Flow Rate 03/03/24 18:25 Nasal Cannula 2 03/03/24 18:15 Nasal Cannula 2 03/03/24 18:05 Oxymask 3 03/03/24 17:56 Oxymask 6 03/03/24 16:09 Room Air 03/03/24 13:59 03/03/24 11:15 Room Air 03/03/24 07:48 Room Air 03/03/24 06:58 03/03/24 04:11 Room Air 03/02/24 23:33 03/02/24 22:35 Room Air 03/02/24 20:08 Room Air Pain Intensity Throat: Pain Intensity: 1 Transfer of Care Handoff Completed per policy Notes Mental Status: alert / awake / arousable Patient Amnestic to Procedure: Yes Nausea / Vomiting: adequately controlled Pain: adequately controlled Airway Patency, RR, SpO2: stable & adequate BP & HR: stable & adequate Hydration State: stable & adequate Anesthetic Complications: no major complications apparent
--- NOTE | 2024-03-04 07:47 | History & Physical Bridge Note ---
Date of Service March 04, 2024 History & Physical Bridge Note Patient feels much better today. Last evening I drained a left peritonsillar abscess. He should be able to be discharged today on oral antibiotics without steroids
--- NOTE | 2024-03-04 12:05 | Hospitalist Progress Note ---
Date of Service March 04, 2024 Assessment & Plan (1) Sore throat: Plan: 58-year-old male with past medical history significant for hypertension, hyperlipidemia, prediabetes comes because of left-sided sore throat started since Monday. Also having fevers. Not able to swallow even liquids because of pain in the throat. He went to urgent care and was prescribed Augmentin but symptoms did not improve. On Monday he had episode of loss of peripheral vision in the left eye for about 20 minutes and then got resolved. At the time he had headache and dizziness. Currently vision is okay. Currently no headache. 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 He has hearing aids for the right ear. No runny nose. No chest pain or shortness of breath. No cough. No nausea. No abdominal pain. Normal bowel and bladder movements. Hemodynamics are okay. Cellulitis of left parapharyngeal space Left peritonsillar abscess--POA Dysphagia secondary to above --Neck CT:Moderate left oropharyngeal mucosal thickening, results in severe airway narrowing. This may be inflammatory/infectious, neoplasm not excluded. Mucosal edema extends in the left hypopharynx/larynx to the level of the vocal cords. Nonspecific left level 2 cervical adenopathy, may be reactive, metastatic disease not excluded. --MRI:Rim-enhancing left peritonsillar abnormality that measures approximately 2.4 x 1.9 x 1.3 cm. This is suggestive of a peritonsillar abscess. In retrospect, this was likely present on CT of March 02, 2024 but was obscured by streak artifact from dental amalgams -- Blood cultures: No growth to date -- Appreciate ENT input Continue IV Unasyn Will complete IV Decadron today --S/P I&D of left peritonsillar abscess on 03/03/2024 by Pain is controlled Discussed with the ENT today: Can complete Augmentin course for 7 more days Plan to discharge home today Transient visual loss recently --MRI brain:No acute intracranial findings. Unremarkable MRI of the brain. -- Advised to follow-up with neurology/ophthalmology as outpatient No recurrence of issues while hospitalized Hypertension Continue losartan BP elevated like due to steroids/Pain IV hydralazine as needed Hyperlipidemia Continue statin Prediabetes HbA1c 6.3 DVT prophylaxis Heparin SQ Code Status Full code Admission and Anticipated Discharge Date Admission Date: March 02, 2024 Subjective Patient is seen and examined at bedside States feeling well today Odynophagia resolved Tolerating regular diet Discussed with ENT today Patient offers no new complaints Denies any chest pain, dyspnea, nausea, vomiting, abdominal pain, change in vision currently Family at bedside Plan to be discharged home today Review of Systems Review of Systems: All systems reviewed & are unremarkable except as noted in Subjective Physical Exam Physical Exam: Physical Exam: Vitals signs as noted above General Appearance:Moderately built and nourished, no apparent distress Head: normocephalic, Atraumatic,+ left lateral pharyngeal wall swelling, edema, erythema Eyes: normal inspection, EOMI Neck: supple, Trachea midline, Left tender Respiratory/Chest: Normal breath sounds, CTA, No accessory muscle use Cardiovascular: S1, S2, No murmur Abdomen/GI:Soft, Non tender, Bowel sounds present Extremities/Musculoskeletal:normal inspection, no edema Neurologic/Psych:AAOX3, grossly no focal neurological deficits, +Left decreased hearing Skin: normal color, warm Results & Data Results & Data Vital Signs (Past 12 Hours) Vital Signs Temp Pulse Resp BP Pulse Ox O2 Del Method 03/04/24 11:36 36.6 C 82 18 153/75 H 95 Room Air 03/04/24 07:46 36.3 C L 59 L 18 172/91 H 93 Room Air 03/04/24 04:07 36.4 C L 62 16 158/86 H 91 Room Air
--- NOTE | 2024-03-04 12:33 | Discharge Summary ---
Date of Service March 04, 2024 Admission HPI Per Admitting Provider 58-year-old male with past medical history significant for hypertension, hyperlipidemia, prediabetes comes because of left-sided sore throat started since Monday. Also having fevers. Not able to swallow even liquids because of pain in the throat. He went to urgent care and was prescribed Augmentin but symptoms did not improve. On Monday he had episode of loss of peripheral vision in the left eye for about 20 minutes and then got resolved. At the time he had headache and dizziness. Currently vision is okay. Currently no headache. 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 He has hearing aids for the right ear. No runny nose. No chest pain or shortness of breath. No cough. No nausea. No abdominal pain. Normal bowel and bladder movements. Hemodynamics are okay. Past medical History as mentioned above. Past surgical history. left knee meniscal tear repair. Social history. No smoking. No alcohol use.. No drug use. Family history. Father had aortic aneurysm repair. Admission Exam Per Admitting Provider General-Not in distress. Head- atraumatic Eyes- PERRL. ENT- Left uvula and pharynx erythematous and swollen. Neck- supple, no JVD. Lungs- clear to auscultation no wheezing or crackles. Heart- regular rate and rhythm; no murmur, no gallop. Abdomen- normal bowel sounds, soft, nontender, no distension. Extremities- no pretibial edema, no erythema seen. Neuro- alert, oriented x 3; PERRL, no facial palsy; no dysarthria; moves extremities. Principal Diagnosis Left peritonsillar abscess Cellulitis of left parapharyngeal space Discharge Data Allergies Allergy/AdvReac Type Severity Reaction Status Date / Time No Known Drug Allergies Allergy . Verified 03/02/24 05:49 Consultations 03/02/24 03:26 Consult Otolaryngology (Head and Neck) Routine 03/02/24 03:27 ED Decision to Admit Stat Procedures Performed Operation Date: 03/03/24 16:30 Actual Procedures p Incision and Drainage Left Peritonsillar Abcsess(Left) - Marcel Julian MD Ordered Studies 03/01/24 23:20 CT neck soft tissues [CT soft tissue neck w con] Stat 03/02/24 11:59 MRI Brain [MR brain wo/w con] Urgent Laboratory Results WBC 13.64 K/ul (4.8-10.8) H 03/03/24 06:41 RBC 4.29 M/uL (4.70-6.10) L 03/03/24 06:41 Hgb 12.4 g/dl (14.0-18.0) L 03/03/24 06:41 Hct 37.6 % (42.0-52.0) L 03/03/24 06:41 MCV 87.6 fL (80.0-100.0) 03/03/24 06:41 MCH 28.9 pg (25.0-34.0) 03/03/24 06:41 MCHC 33.0 g/dL (32.0-36.0) 03/03/24 06:41 RDW Std Deviation 43.2 fL (36.4-46.3) 03/03/24 06:41 RDW Coeff of Mike 13.4 % (11.5-14.5) 03/03/24 06:41 Plt Count 277 K/uL (130-400) 03/03/24 06:41 MPV 10.2 fL (9.4-12.4) 03/03/24 06:41 Immature Gran % (Auto) 0.7 % 03/02/24 06:41 Neut % (Auto) 91.6 % 03/02/24 06:41 Lymph % (Auto) 6.7 % 03/02/24 06:41 [place] % (Auto) 0.9 % 03/02/24 06:41 Eos % (Auto) 0.0 % 03/02/24 06:41 Baso % (Auto) 0.1 % 03/02/24 06:41 Neut # (Auto) 9.74 K/uL (1.40-6.50) H 03/02/24 06:41 Lymph # (Auto) 0.71 K/uL (1.20-3.40) L 03/02/24 06:41 [place] # (Auto) 0.10 K/uL (0.11-0.59) L 03/02/24 06:41 Eos # (Auto) 0.00 K/uL (0.00-0.50) 03/02/24 06:41 Baso # (Auto) 0.01 K/uL (0.00-0.20) 03/02/24 06:41 Immature Gran # (Auto) 0.07 K/uL (0.01-0.20) 03/02/24 06:41 PT 10.5 Seconds (9.0-12.0) 03/01/24 23:29 INR 1.0 (0.9-1.1) 03/01/24 23:29 Sodium 141 mmol/L (136-145) 03/03/24 06:41 Potassium 4.0 mmol/L (3.5-5.1) 03/03/24 06:41 Chloride 109 mmol/L (98-107) H 03/03/24 06:41 Carbon Dioxide 25 mmol/L (21-32) 03/03/24 06:41 Anion Gap 7 (3-11) 03/03/24 06:41 BUN 15 mg/dl (6-23) 03/03/24 06:41 Creatinine 0.91 mg/dl (0.6-1.4) 03/03/24 06:41 Est Cr Clr Drug Dosing 112.4 ml/min 03/03/24 06:41 Est GFR ( Amer) 106.5 ml/min 03/03/24 06:41 Est GFR (Non-Af Amer) 91.9 ml/min 03/03/24 06:41 BUN/Creatinine Ratio 16.5 (10-20) 03/03/24 06:41 Glucose 173 mg/dl (70-99(Fasting)) H 03/03/24 06:41 POC Glucose 101 mg/dl (70-99) H 03/03/24 11:24 Estimat Average Glucose 134 mg/dl 03/02/24 06:41 Hemoglobin A1c 6.3 % (4.5-5.6) H 03/02/24 06:41 Calcium 9.3 mg/dl (8.6-10.3) 03/03/24 06:41 Magnesium 2.2 mg/dl (1.7-2.4) 03/02/24 06:41 Total Bilirubin 0.8 mg/dl (0.2-1.0) 03/01/24 23:29 AST 19 U/L (13-39) 03/01/24 23:29 ALT 21 U/L (7-52) 03/01/24 23:29 Alkaline Phosphatase 50 U/L (34-104) 03/01/24 23:29 Total Protein 8.1 gm/dl (6.0-8.3) 03/01/24 23:29 Albumin 4.7 gm/dl (3.4-5.0) 03/01/24 23:29 Globulin 3.4 gm/dl (2.5-4.0) 03/01/24 23:29 Albumin/Globulin Ratio 1.4 (0.9-2) 03/01/24 23:29 Impressions Soft Tissue Neck CT 03/01/24 23:20 CR Exam(s): CT NECK With Contrast IV Amt: 94 cc's optiray 320 EXAM: CT Neck With Intravenous Contrast CLINICAL HISTORY: Reason for exam: uvula swelling, L sided post. pharyngeal edema. TECHNIQUE: Axial computed tomography images of the neck with intravenous contrast. CTDI is 19.3 mGy and DLP is 604.6 mGy-cm. Automated exposure control was utilized for the study. A dose lowering technique was utilized adhering to the principles of ALARA. Moderate dental metal artifact. CONTRAST: Patient received 94 cc optiray 320 IV. COMPARISON: No relevant prior studies available. FINDINGS: Oropharynx: Uvular swelling, and moderate asymmetric mucosal swelling in the oropharynx, greater on the left. Nonspecific, could reflect left tonsillar hypertrophy, and a 12 mm left peritonsillar abscess. Limited evaluation due to dental metal artifact. Neoplasm not excluded. Severe narrowing of the oropharyngeal airway to 1 mm in the supine position. Hypopharynx/larynx: Mild mucosal thickening in the left uvula to the level of the vocal cords. Normal epiglottis. Trachea: Unremarkable. Retropharyngeal space: Unremarkable. Submandibular/parotid glands: Unremarkable. Glands are normal in size. Thyroid: Unremarkable. No enlarged or calcified nodules. Bones/joints: No acute fracture. Soft tissues: Unremarkable. Vasculature: No acute findings. Lymph nodes: Nonspecific left level 2 cervical lymph nodes, may be reactive, cannot rule out metastatic disease. Lung apices: Unremarkable as visualized. IMPRESSION: 1. Moderate left oropharyngeal mucosal thickening, results in severe airway narrowing. This may be inflammatory/infectious, neoplasm not excluded. 2. Mucosal edema extends in the left hypopharynx/larynx to the level of the vocal cords. 3. Nonspecific left level 2 cervical adenopathy, may be reactive, metastatic disease not excluded. Communications: Call Doctor Above results Electronically signed by: Delfina Ordonez M.D. 03/02/24 03:14 AM Brain MRI 03/02/24 11:59 MRI OF THE BRAIN WITHOUT AND WITH IV CONTRAST CLINICAL HISTORY: Transient visual loss. COMPARISON STUDY: CT of the neck March 02, 2024. TECHNIQUE: Utilizing a 1.5 Uyen magnet and dedicated coil, multiplanar, multiecho imaging of the brain was performed pre and postcontrast administration . IV administration of 11 mL of Gadavist contrast was uneventful. FINDINGS: There are no foci of restricted diffusion to suggest acute infarct. No acute intracranial hemorrhage, midline shift or mass effect is present. Ventricular system is normal. Basal cisterns are patent. Flow-voids for the major intracranial vessels are present. There is no intracranial mass or pathologic enhancement. Flow-voids for the major intracranial vessels are present. No parenchymal signal abnormality is identified. A sebaceous cyst within the left scalp is incidentally noted. There is a rim-enhancing left perit onsillar abnormality that measures approximately 2.4 x 1.9 x 1.3 cm. IMPRESSION: 1. No acute intracranial findings. Unremarkable MRI of the brain. 2. Rim-enhancing left peritonsillar abnormality that measures approximately 2.4 x 1.9 x 1.3 cm. This is suggestive of a peritonsillar abscess. In retrospect, this was likely present on CT of March 02, 2024 but was obscured by streak artifact from dental amalgams ACT 112: Negative or not required by law. Electronically signed by: Yaakov Joseph M.D. 03/02/2024 2:42 PM Hospital Course (1) Sore throat: 58-year-old male with past medical history significant for hypertension, hyperlipidemia, prediabetes comes because of left-sided sore throat started since Monday. Also having fevers. Not able to swallow even liquids because of pain in the throat. He went to urgent care and was prescribed Augmentin but symptoms did not improve. On Monday he had episode of loss of peripheral vision in the left eye for about 20 minutes and then got resolved. At the time he had headache and dizziness. Currently vision is okay. Currently no headache. 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 He has hearing aids for the right ear. No runny nose. No chest pain or shortness of breath. No cough. No nausea. No abdominal pain. Normal bowel and bladder mov ements. Hemodynamics are okay. Cellulitis of left parapharyngeal space Left peritonsillar abscess--POA Dysphagia secondary to above --Neck CT:Moderate left oropharyngeal mucosal thickening, results in severe airway narrowing. This may be inflammatory/infectious, neoplasm not excluded. Mucosal edema extends in the left hypopharynx/larynx to the level of the vocal cords. Nonspecific left level 2 cervical adenopathy, may be reactive, metastatic disease not excluded. --MRI:Rim-enhancing left peritonsillar abnormality that measures approximately 2.4 x 1.9 x 1.3 cm. This is suggestive of a peritonsillar abscess. In retrospect, this was likely present on CT of March 02, 2024 but was obscured by streak artifact from dental amalgams -- Blood cultures: No growth to date -- Appreciate ENT input Continue IV Unasyn>> Augmentin (as per prior prescription with more than 7 days of medication left) IV Decadron>> position to prednisone taper course --S/P I&D of left peritonsillar abscess on 03/03/2024 by Pain is controlled Discussed with the ENT today: Can complete Augmentin course for 7 more days Plan to discharge home today Transient visual loss recently --MRI brain:No acute intracranial findings. Unremarkable MRI of the brain. -- Advised to follow-up with neurology/ophthalmology as outpatient No recurrence of issues while hospitalized Hypertension Continue losartan BP elevated like due to steroids/Pain IV hydralazine as needed Hyperlipidemia Continue statin Prediabetes HbA1c 6.3 DVT prophylaxis Heparin SQ Code Status Full code Total Time Total Time Spent Total Time Spent (In Minutes): 51 minutes Discharge Plan Discharge Items Patient Disposition: Home - Self-Care Reason For Visit: SORE THROAT, ANGIOEDEMA? Discharge Diagnosis: Left peritonsillar abscess Cellulitis of left parapharyngeal space Condition on Discharge: Good Activity: Per Instructions section Exercise/Sports: Gradually increase as tolerated Non-emergency contact: Primary Care Provider and Surgeon Call non-emergency contact if: you have any medication questions, your symptoms worsen, your pain is concerning for you and you have a fever Follow-up/Referrals: Jitendra Santos MD [Primary Care Provider] - Dietitian Info: Soft Diet: Heart Healthy Addtl Attending Provider Instructions: Follow-up with your primary care physician Dr. Santos in 1 week Follow-up with your ENT surgeon as recommended by your surgeon Consider following with your neurologist/biopsychologist for further of your vision as recommended --Complete the antibiotic (Augmentin) course as previously prescribed for 7 more days --Complete the prednisone tapering course as prescribed -- Your blood and peritonsillar cultures are pending at the time of discharge. Follow-up with your physician for results. Seek immediate medical attention if your symptoms reoccur or worsen Please take all medications as instructed on discharge list below. Please call if you have any questions or problems. You can reach a [facility] hospitalist on duty at [facility] 24 hours a day by calling [phone] Pending Studies at Discharge: Yes Studies:: Blood/peritonsillar cultures Stand-Alone Forms: [facility], Smoking Cessation Medications and DC Order Prescriptions: New prednisone 20 mg tablet 20 mg PO BID Qty: 15 0RF Rx Instructions: Please take one tablet by mouth twice daily on days 1 through 5. Please take one tablet by mouth once daily on days 6 through 10. acetaminophen-codeine 300-30 mg Tablet 1 tab PO Q8H PRN (Reason: pain) Qty: 7 0RF Continued losartan 100 mg tablet 50 mg PO DAILY amoxicillin-pot clavulanate 875-125 mg tablet 1 tab PO BID rosuvastatin 10 mg tablet 10 mg PO DAILY aspirin 81 mg Tablet,Delayed Release (Dr/Ec) 81 mg PO DAILY ezetimibe 10 mg tablet 10 mg PO DAILY Rx Instructions: DONOT KNOW EXACT DOSE Discharge Orders: Discharge Order (Routine); Ordered 03/04/24 Ordered By: Juan Graham/Other Patient Handouts: Prediabetes, 5 Steps for Eating Healthier Admission Data Admit Date/Time: 03/02/24 04:11 Attending Provider: Juan Tran Admit Provider: Con Moncada Primary Care Provider: Jitendra Santos Other Providers: Marcel Julian; Con Moncada
== END 2024-03-04 13:10 | disposition home or self-care (01) | DRG 144 ==
LOC: ED 22:59 → 2W 03-02 04:11